=== PATIENT | female | born 1990 | race Two or more races ===

== ENCOUNTER → 2023-09-23 | Outpatient (CLI) | payer OTHER | LOC: M EKG 08:49 | PROVIDERS: ATTEND Obstetrics & Gynecology | DX: R00.2 Palpitations (principal) ==

== ENCOUNTER → 2024-01-18 | Outpatient (REF) | payer OTHER | LOC: M SFHCWAGY 12:27 | PROVIDERS: ATTEND Obstetrics & Gynecology | DX: Z36.89 Encounter for other specified antenatal screening (principal); Z3A.36 36 weeks gestation of pregnancy ==

== ENCOUNTER → 2024-01-19 | Outpatient (CLI) | payer OTHER | LOC: M WHC 08:05 | PROVIDERS: ATTEND Obstetrics & Gynecology | DX: O24.419 Gestational diabetes mellitus in pregnancy, unspecified control (principal); Z3A.36 36 weeks gestation of pregnancy; O09.513 Supervision of elderly primigravida, third trimester ==

== ENCOUNTER → 2024-01-28 | Outpatient (CLI) | payer OTHER | LOC: M WHC 08:42 | PROVIDERS: ATTEND Obstetrics & Gynecology | DX: O28.8 Other abnormal findings on antenatal screening of mother (principal) ==

== ENCOUNTER 2024-02-08 05:08 | Inpatient (IN) | payer OTHER ==
[~2024-02-08] VITALS: Ht 160 cm; Wt 100.4 kg
[2024-02-08] VITALS (31 sets, daily range): BP systolic 124–171; BP diastolic 75–105; TEMP 97; O2SAT 99–100
[2024-02-08] MEDS ORDERED: LR 1,000 ML IV SCH (05:20)
[2024-02-08] MEDS ORDERED: PRENTAB9 PO (05:29)
[2024-02-08 06:16] LABS: HEMOGLOBIN 12.1 g/dl (12.0-15.5); MEAN CORPUSCULAR HEMOGLOBIN 28.5 pg (27.0-33.0); MEAN CORPUSCULAR HGB CONC 33.6 g/dl (32.0-36.5); MEAN CORPUSCULAR VOLUME 84.9 fl (80.0-96.0); PLATELET COUNT, AUTOMATED 162 10^3/uL (150-450); RED BLOOD COUNT 4.24 10^6/uL (4.00-5.40); WHITE BLOOD COUNT 9.1 10^3/uL (4.0-10.0)
[2024-02-08] MEDS: LACTATED RINGER'S 1000 ML IV STA (06:55)
[2024-02-08] MEDS: LABETALOL 100MG/20ML VIAL IV STA (06:56)
[2024-02-08 07:08] LABS: ALBUMIN 2.6 G/DL (3.2-5.2); ALKALINE PHOSPHATASE 190 U/L (35-104); ALT/SGPT 43 U/L (7.0-40); AST/SGOT 31 U/L (<34); BILIRUBIN,TOTAL 0.5 MG/DL (0.3-1.2); BLOOD UREA NITROGEN 12 MG/DL (9-23); CALCIUM LEVEL 9.7 MG/DL (8.5-10.1); CARBON DIOXIDE LEVEL 20 MMOL/L (20-31); CHLORIDE LEVEL 109 MMOL/L (98-107); CREATININE FOR GFR 0.71 MG/DL (0.55-1.30); GLOMERULAR FILTRATION RATE > 60.0 (>60); GLUCOSE, FASTING 80 MG/DL (60-100); POTASSIUM SERUM 4.3 MMOL/L (3.5-5.1); SODIUM LEVEL 140 MMOL/L (136-145); TOTAL PROTEIN 6.2 G/DL (5.7-8.2)
[2024-02-08] MEDS ORDERED: ONDANSETRON 4MG 2ML VIAL As Ordered ONE (07:15)
[2024-02-08] MEDS ORDERED: KETOROLAC 60MG 2ML VIAL As Ordered ONE (07:15)
[2024-02-08] MEDS ORDERED: OXYTOCIN 30UNITS IN 0.9% NaCl 500ML IV BAG As Ordered ONE (07:15)
[2024-02-08] MEDS ORDERED: ACETAMINOPHEN 1000MG/100ML IV BAG As Ordered ONE (07:16)
[2024-02-08] MEDS ORDERED: MORPHINE PRES-FREE INJ 10 MG/10 ML VIAL As Ordered ONE (07:18)
[2024-02-08] MEDS: BICITRA 30ML SOLN UDC PO ONE (07:21)
[2024-02-08] MEDS: ceFAZolin SOD 2 GM in IV 1 EA IV ONE (07:22)
[2024-02-08 07:24] LABS: HEPATITIS C VIRUS ABY INDEX < 0.02 INDEX (<0.8)
[2024-02-08] MEDS ORDERED: MAGNESIUM *L&D* 4GM/100ML BAG (40MG/ML) As Ordered ONE (07:29)
[2024-02-08] MEDS ORDERED: MAGNESIUM SULFATE 4% INJ 20GM/500ML (40MG/ML) As Ordered ONE (07:29)
[2024-02-08] MEDS: MAGNESIUM *L&D* 4GM/100ML BAG (40MG/ML) IV ONE (07:37)
[2024-02-08] MEDS: MAG Sulf (OBGYN) 20GM/500ML 20,000 MG in IV 1 EA IV SCH ×2 (07:37→18:16)
[2024-02-08] MEDS ORDERED: ePHEDrine SULFATE 25 MG/5 ML(5MG/ML) SYRINGE As Ordered ONE (08:30)
[2024-02-08] MEDS ORDERED: PHENYLephrine 500MCG 5ML (100MCG/ML) SYRINGE As Ordered ONE (08:30)
[2024-02-08] MEDS ORDERED: METOCLOPRAMIDE INJ 10MG/2ML VIAL As Ordered ONE (08:41)
[2024-02-08] MEDS ORDERED: RHOGAM 300MCG (1500IU) INJ IM SCH (09:05)
[2024-02-08] MEDS ORDERED: ONDANSETRON 4MG 2ML VIAL IV PRN (09:15)
[2024-02-08] MEDS ORDERED: **NOTE PATIENT COMMENT** MISC XX SCH (09:15)
[2024-02-08] MEDS ORDERED: fentaNYL 100 MCG/2 ML INJECTION IV PRN (09:15)
[2024-02-08] MEDS ORDERED: oxyCODONE 5MG TAB PO PRN (09:15)
[2024-02-08] MEDS ORDERED: HYDROMORPHONE HCL 0.5 MG/ 0.5 ML SYRINGE IV PRN (09:15)
[2024-02-08] MEDS ORDERED: MEPERIDINE 25 MG/ML 1ML VIAL IV PRN (09:15)
[2024-02-08] MEDS ORDERED: NALOXONE INJ 0.4MG/1ML VIAL IV PRN ×2 (09:15)
[2024-02-08] MEDS ORDERED: METOCLOPRAMIDE INJ 10MG/2ML VIAL IV PRN (09:15)
[2024-02-08] MEDS ORDERED: diphenhydrAMINE 50MG/ML VIAL IV PRN (09:15)
[2024-02-08] MEDS ORDERED: ACET-683 PO (09:18)
[2024-02-08] MEDS ORDERED: IBUP-1022 PO (09:18)
[2024-02-08] MEDS ORDERED: COLA100C5 PO (09:18)
[2024-02-08] MEDS ORDERED: OXYC-517 PO (09:18)
[2024-02-08] MEDS: OXYTOCIN DRIP 30 UNITS in IV 1 EA IV SCH (09:36)
[2024-02-08] MEDS ORDERED: oxyCODONE 5MG TAB As Ordered ONE (10:05)
[2024-02-08] MEDS: oxyCODONE 5MG TAB PO PRN (10:07)
[2024-02-08] MEDS: PRENATAL VITAMINS CHEWABLE TABLET PO SCH (13:57)
[2024-02-08] MEDS: KETOROLAC 30 MG/ML 1ML VIAL IV SCH (13:57)
[2024-02-08] MEDS: ACETAMINOPHEN 500 MG TAB PO SCH (15:06)
[2024-02-08] MEDS: SLF 3 ML SYR IV SCH (20:03)
[2024-02-09] VITALS (14 sets, daily range): BP systolic 126–159; BP diastolic 73–97; O2SAT 99–100
[2024-02-09] MEDS: LR 1,000 ML IV SCH (02:29)
[2024-02-09 06:55] LABS: HEMATOCRIT 29.8 % (36.0-47.0); MEAN CORPUSCULAR HEMOGLOBIN 28.4 pg (27.0-33.0); MEAN CORPUSCULAR HGB CONC 33.6 g/dl (32.0-36.5); MEAN CORPUSCULAR VOLUME 84.7 fl (80.0-96.0); PLATELET COUNT, AUTOMATED 121 10^3/uL (150-450); RED BLOOD COUNT 3.52 10^6/uL (4.00-5.40); WHITE BLOOD COUNT 7.9 10^3/uL (4.0-10.0)
[2024-02-09] MEDS: oxyCODONE 5MG TAB PO PRN (07:08)
[2024-02-09] MEDS: IBUPROFEN 600MG TAB PO SCH (10:48)
[2024-02-09] MEDS: NIFEdipine 30MG XL TAB PO SCH (21:00)
[2024-02-10] VITALS (7 sets, daily range): BP systolic 135–144; BP diastolic 74–88; O2SAT 99–100
[2024-02-10] MEDS: DOCUSATE SODIUM 100MG CAPSULE PO PRN (03:33)
[2024-02-10] MEDS: MEASLES,MUMPS,RUBELLA VACCINE INJ (MMR-II) SC.IMMUN ONE (08:37)
[2024-02-10] MEDS: FLUZONE VACCINE TRIVALENT PF(2024-25) 0.5ML SYRINGE IM.IMMUN ONE (08:39)
[2024-02-10] MEDS: SIMETHICONE 80MG CHEW TAB PO PRN (23:34)
[2024-02-11 01:54] VITALS: BP 136/82; O2SAT 99
[2024-02-11 05:54] VITALS: BP 132/80; O2SAT 99
[2024-02-11 08:59] VITALS: BP 147/97
[2024-02-11 09:50] VITALS: BP 148/94; O2SAT 99
[2024-02-11] MEDS ORDERED: IBUP-1022 PO (13:42)
[2024-02-11] MEDS ORDERED: NIFE1TAB52 PO (13:42)
[2024-02-12] MEDS ORDERED: IBUP1TAB6 PO (16:24)
[2024-02-12] MEDS ORDERED: ACET-683 PO (16:24)
[2024-02-12] MEDS ORDERED: DOCU100C16 PO (16:24)
[2024-02-12] MEDS ORDERED: NIFE1TAB52 PO (16:24)
== END 2024-02-11 15:25 | disposition home or self-care (01) | DRG 785 ==
LOC: M LDI 05:08 → M OBS 02-09 08:30
PROVIDERS: ADMIT Obstetrics & Gynecology; ATTEND Obstetrics & Gynecology
PROC: 0UB50ZZ Excision of Right Fallopian Tube, Open Approach (ICD-10-PCS; 2024-02-08)
PROC: 10D00Z1 Extraction of Products of Conception, Low, Open Approach (ICD-10-PCS; principal; 2024-02-08 07:30)
DX: O24.420 Gestational diabetes mellitus in childbirth, diet controlled (principal); N83.8 Other noninflammatory disorders of ovary, fallopian tube and broad ligament; Z3A.39 39 weeks gestation of pregnancy; N80.201 Endometriosis of right fallopian tube, unspecified depth; Z37.0 Single live birth; O26.893 Other specified pregnancy related conditions, third trimester

== ENCOUNTER 2024-02-12 12:17 | Observation (INO) | payer OTHER ==
[~2024-02-12] VITALS: Ht 160 cm; Wt 95.4 kg
[~2024-02-12 12:17] MED LIST: ACET-683 PO; COLA100C5 PO; IBUP-1022 PO; NIFE1TAB52 PO; OXYC-517 PO; PRENTAB9 PO
[2024-02-12] MEDS ORDERED: ISOVUE-370 76% 100ML VIAL As Ordered ONE (13:02)
[2024-02-12 13:16] LABS: HEMATOCRIT 37.1 % (36.0-47.0); HEMOGLOBIN 12.4 g/dl (12.0-15.5); MEAN CORPUSCULAR VOLUME 84.1 fl (80.0-96.0); RED BLOOD COUNT 4.41 10^6/uL (4.00-5.40); WHITE BLOOD COUNT 11.3 10^3/uL (4.0-10.0)
[2024-02-12 13:17] LABS: BASO # 0.1 10^3/uL (0.0-0.2); BASO % 0.7 % (0.0-1.0); EOS # 0.1 10^3/uL (0.0-0.5); EOS % 0.8 % (0.0-3.0); LYMPH # 1.7 10^3/uL (1.5-5.0); LYMPH % 14.8 % (24.0-44.0); MEAN CORPUSCULAR HEMOGLOBIN 28.1 pg (27.0-33.0); MEAN CORPUSCULAR HGB CONC 33.4 g/dl (32.0-36.5); MONO # 0.8 10^3/uL (0.0-0.8); MONO % 6.7 % (2.0-8.0); NEUTROPHILS # 8.4 10^3/uL (1.5-8.5); NEUTROPHILS % 74.5 % (36.0-66.0); PLATELET COUNT, AUTOMATED 220 10^3/uL (150-450)
[2024-02-12 13:29] LABS: INR 0.83; PARTIAL THROMBOPLASTIN TIME 25.4 SECONDS (24.8-34.2); PROTHROMBIN TIME 11.7 SECONDS (12.5-14.5)
[2024-02-12 13:42] LABS: BLOOD UREA NITROGEN 9 MG/DL (9-23); CARBON DIOXIDE LEVEL 24 MMOL/L (20-31); CHLORIDE LEVEL 106 MMOL/L (98-107); CK-MB VALUE MASS < 1.0 NG/ML (<3.6); CREATININE FOR GFR 0.63 MG/DL (0.55-1.30); GLOMERULAR FILTRATION RATE > 60.0 (>60); GLUCOSE, FASTING 85 MG/DL (60-100); MAGNESIUM LEVEL 1.8 MG/DL (1.8-2.4); PHOSPHORUS LEVEL 4.5 MG/DL (2.5-4.9); SODIUM LEVEL 142 MMOL/L (136-145)
[2024-02-12 13:44] LABS: THYROID STIMULATING HORMONE 1.734 uIU/ML (0.55-4.78)
[2024-02-12 13:45] LABS: FREE T4 0.85 NG/DL (0.89-1.76)
[2024-02-12 13:50] LABS: CPK CREATINE PHOSPHOKINASE 82 U/L (34-145); MB/CK RELATIVE INDEX 1.21 (< OR =4)
[2024-02-12] MEDS ORDERED: NIFE1TAB52 PO (16:24)
[2024-02-12] MEDS ORDERED: IBUP1TAB6 PO (16:24)
[2024-02-12] MEDS ORDERED: ACET-683 PO (16:24)
[2024-02-12] MEDS ORDERED: DOCU100C16 PO (16:24)
[2024-02-12] MEDS ORDERED: HOME MED LIST COMPLETE! XX SCH (16:25)
[2024-02-12] MEDS: ACETAMINOPHEN 500 MG TAB PO PRN (16:35)
[2024-02-12 16:43] LABS: TOTAL PROTEIN,RANDOM URINE 10.1 MG/DL (0.0-14.0)
[2024-02-12 16:48] LABS: CREATININE,RANDOM URINE 17.3 MG/DL
[2024-02-12] MEDS: ASPIRIN 81MG CHEW TABLET PO ONE (17:13)
[2024-02-12 18:13] LABS: LDH LACTATE DEHYDROGENASE 220 U/L (120-246)
[2024-02-12 18:14] LABS: ALT/SGPT 60 U/L (7.0-40); AST/SGOT 48 U/L (<34); BILIRUBIN,TOTAL 0.6 MG/DL (0.3-1.2)
[2024-02-12 18:17] LABS: URIC ACID 6.3 MG/DL (3.1-7.8)
[2024-02-12] MEDS: LABETALOL 100MG TAB PO SCH (21:50)
[2024-02-12] MEDS: HEPARIN SOD (PORCINE) 5000UNITS/ML 1ML VIAL/SYRINGE SC SCH (22:52)
[2024-02-13 06:26] LABS: HEMATOCRIT 31.3 % (36.0-47.0); HEMOGLOBIN 10.4 g/dl (12.0-15.5); MEAN CORPUSCULAR HGB CONC 33.2 g/dl (32.0-36.5); MEAN CORPUSCULAR VOLUME 84.4 fl (80.0-96.0); PLATELET COUNT, AUTOMATED 195 10^3/uL (150-450); RED BLOOD COUNT 3.71 10^6/uL (4.00-5.40)
[2024-02-13 07:01] LABS: BLOOD UREA NITROGEN 9 MG/DL (9-23); CALCIUM LEVEL 8.7 MG/DL (8.5-10.1); CARBON DIOXIDE LEVEL 25 MMOL/L (20-31); CHLORIDE LEVEL 107 MMOL/L (98-107); CHOLESTEROL LEVEL 210 MG/DL (<200); CHOLESTEROL RISK RATIO 3.67 (<5); CREATININE FOR GFR 0.64 MG/DL (0.55-1.30); GLOMERULAR FILTRATION RATE > 60.0 (>60); GLUCOSE, FASTING 84 MG/DL (60-100); HDL CHOLESTEROL 57.1 MG/DL (>40); LDL CHOLESTEROL 117.7 MG/DL (<100); NON-HDL-C 152.9 MG/DL; SODIUM LEVEL 141 MMOL/L (136-145); TRIGLYCERIDES LEVEL 176 MG/DL (<150)
[2024-02-13 07:38] LABS: HEMOGLOBIN A1c 5.2 % (4.0-6.0)
[2024-02-13] MEDS: ASPIRIN 81MG CHEW TABLET PO SCH (08:09)
[2024-02-13 08:12] VITALS: BP 132/87
[2024-02-13] MEDS ORDERED: LABE200T5 PO (09:04)
[2024-02-13 10:48] VITALS: BP 137/86; TEMP 97.4; O2SAT 98
== END 2024-02-13 11:14 | disposition home or self-care (01) ==
LOC: M ED 12:17 → M ED INP 15:34
PROVIDERS: ADMIT Internal Medicine; ATTEND Internal Medicine
DX: O14.95 Unspecified pre-eclampsia, complicating the puerperium (principal); R00.0 Tachycardia, unspecified; R47.1 Dysarthria and anarthria; R51.9 Headache, unspecified; Z73.3 Stress, not elsewhere classified; O24.419 Gestational diabetes mellitus in pregnancy, unspecified control; Z83.3 Family history of diabetes mellitus; Z82.49 Family history of ischemic heart disease and other diseases of the circulatory system; Z80.6 Family history of leukemia; Z80.3 Family history of malignant neoplasm of breast; Z82.3 Family history of stroke; Z87.891 Personal history of nicotine dependence; Z88.8 Allergy status to other drugs, medicaments and biological substances; Z91.013 Allergy to seafood; Z91.040 Latex allergy status; Z79.899 Other long term (current) drug therapy
CPT/HCPCS: 36415; 70450; 70496; 70498; 70551; 71045; 80047; 80048; 80061; 82247; 82550; 82553; 82570; 83036; 83615; 83735; 84100; 84156; 84439; 84443; 84450; 84460; 84484; 84550; 85025; 85027; 85610; 85730; 86850; 86900; 86901; 93005; 93041; 94760; 96372; 99285; Q9967

== ENCOUNTER 2024-02-18 22:15 | Emergency (ER) | payer OTHER ==
[~2024-02-18] VITALS: Ht 160 cm; Wt 94.2 kg
[~2024-02-18 22:15] MED LIST changes: +DOCU100C16 PO; +IBUP1TAB6 PO; +LABE200T5 PO
[2024-02-18 22:17] VITALS: TEMP 98.4
[2024-02-19] MEDS: methylPREDNISolone 125MG 2ML VIAL IV ONE (02:36)
[2024-02-19] MEDS: FAMOTIDINE 20MG/2ML VIAL IVP ONE (02:36)
[2024-02-19] MEDS: diphenhydrAMINE 50MG/ML VIAL IV STA (02:36)
[2024-02-19 03:03] VITALS: BP 167/100
[2024-02-19] MEDS: NIFEdipine 30MG XL TAB PO STA (03:03)
[2024-02-19 03:30] LABS: BASO # 0.1 10^3/uL (0.0-0.2); BASO % 0.5 % (0.0-1.0); EOS # 0.1 10^3/uL (0.0-0.5); EOS % 0.5 % (0.0-3.0); HEMATOCRIT 33.3 % (36.0-47.0); HEMOGLOBIN 10.8 g/dl (12.0-15.5); LYMPH # 2.3 10^3/uL (1.5-5.0); LYMPH % 23.3 % (24.0-44.0); MEAN CORPUSCULAR HEMOGLOBIN 27.9 pg (27.0-33.0); MEAN CORPUSCULAR HGB CONC 32.4 g/dl (32.0-36.5); MONO # 0.6 10^3/uL (0.0-0.8); MONO % 6.3 % (2.0-8.0); NEUTROPHILS # 6.6 10^3/uL (1.5-8.5); NEUTROPHILS % 67.6 % (36.0-66.0); PLATELET COUNT, AUTOMATED 312 10^3/uL (150-450); RED BLOOD COUNT 3.87 10^6/uL (4.00-5.40); WHITE BLOOD COUNT 9.8 10^3/uL (4.0-10.0)
[2024-02-19 03:32] LABS: ALBUMIN 3.1 G/DL (3.2-5.2); ALKALINE PHOSPHATASE 206 U/L (35-104); ALT/SGPT 42 U/L (7.0-40); AST/SGOT 24 U/L (<34); BILIRUBIN,TOTAL 0.4 MG/DL (0.3-1.2); BLOOD UREA NITROGEN 9 MG/DL (9-23); CALCIUM LEVEL 9.1 MG/DL (8.5-10.1); CARBON DIOXIDE LEVEL 25 MMOL/L (20-31); CHLORIDE LEVEL 108 MMOL/L (98-107); CREATININE FOR GFR 0.66 MG/DL (0.55-1.30); GLOMERULAR FILTRATION RATE > 60.0 (>60); GLUCOSE, FASTING 88 MG/DL (60-100); POTASSIUM SERUM 4.1 MMOL/L (3.5-5.1); SODIUM LEVEL 141 MMOL/L (136-145); TOTAL PROTEIN 6.4 G/DL (5.7-8.2)
[2024-02-19] MEDS ORDERED: hydrALAZINE 20MG/ML 1ML VIAL IV STA (03:58)
[2024-02-19] MEDS ORDERED: NIFE1TAB52 PO (05:20)
[2024-02-19] MEDS ORDERED: PEPC1TAB5 PO (05:22)
[2024-02-19] MEDS ORDERED: PRED20TA PO (05:22)
[2024-02-19] MEDS ORDERED: BENA25CA4 PO (05:22)
[2024-02-19 05:30] VITALS: BP 156/100; O2SAT 96
== END 2024-02-19 06:06 | disposition home or self-care (01) ==
LOC: M ED 22:15
DX: T78.40XA Allergy, unspecified, initial encounter (principal); I10 Essential (primary) hypertension; Z91.013 Allergy to seafood; Z91.040 Latex allergy status; Z91.041 Radiographic dye allergy status; Z79.1 Long term (current) use of non-steroidal anti-inflammatories (NSAID); Z79.52 Long term (current) use of systemic steroids; Z79.810 Long term (current) use of selective estrogen receptor modulators (SERMs); Z79.899 Other long term (current) drug therapy
CPT/HCPCS: 80053; 83735; 85025; 85384; 96374; 99284; J1200; J2919; S0028